=== PATIENT | male | born 1970 | race Caucasian/White ===

== ENCOUNTER 2017-05-19 08:13 | Emergency (ER) | payer SELFPAY ==
[~2017-05-19] VITALS: Ht 170.2 cm; Wt 86.2 kg
[2017-05-19 08:18] VITALS: Ht 170.2 cm; Wt 86.2 kg
[2017-05-19 10:17] VITALS: BP 120/64
== END 2017-05-19 10:17 | disposition home or self-care (01) ==
LOC: ED 08:13
DX: J20.9 Acute bronchitis, unspecified (principal); I10 Essential (primary) hypertension
CPT/HCPCS: J7512; J7613; J7644; Q0092